=== PATIENT | male | born 1965 | race Caucasian/White ===

== ENCOUNTER 2020-09-11 12:40 | Emergency (ER) | payer BC, SELFPAY ==
[2020-09-11 12:48] VITALS: BP 151/82; PULSE 80; RESP 20; TEMP 37.4; O2SAT 100
--- NOTE | 2020-09-11 13:44 | ED.DENTAL ---
HPI - Dental/Oral General Chief complaint: Dental/Oral Stated complaint: tooth pain Source: patient and RN notes reviewed Limitations: no limitations History of Present Illness HPI Narrative: The patient, a smoker/drinker, presents with facial pain. Patient states he has a couple day worsening, of couple year history, of teeth problems. He last saw his dentist about a year ago, he complains of mild left upper lip facial swelling and dental discomfort. No fever, hoarseness, trismus, drainage/discharge; symptoms are mild worse upon eating. Related Data Allergies Allergy/AdvReac Type Severity Reaction Status Date / Time No Known Allergies Allergy Verified 09/11/20 13:16 Review of Systems Review of Systems: Narrative: The patient has been informed that they may have pre-hypertension or Hypertension based on a BP reading in the department. I recommend that the patient call the primary care provider listed on their discharge instructions or a physician of their choice this week to arrange follow up for further evaluation of possible pre-hypertension or Hypertension General/Constitutional: No weight loss,fever Eyes: N0: Redness,discharge Ears/Nose/Throat: No: Epistaxis,ear discharge Respiratory: Denies: Hemoptysis Gastrointestinal: No Vomiting, Bleeding-rectal Skin: No Lumps, eruption Neurologic: No Focal Weakness,Sz Hematologic: Denies: Petechiae/Purpura Psychiatric: No: Suicida ideationl All Other Systems: Reviewed and Negative [facility] Past Medical History Medical History (Updated 09/11/20 @ 12:57 by Sukhdeep Mirza MD) Erectile dysfunction GERD (gastroesophageal reflux disease) Family History Family History Father Hypertension Family history of cardiovascular disease Family history of emphysema Mother Hypertension Family history of cardiovascular disease Social History Social History Smoking status: Never smoker Alcohol intake: current Comments At time of signature, agree with nursing past medical, surgical, social and family history. There is no relevant family history pertinent to the presenting complaint Exam Narrative: Exam Narrative: General Appearance: Well appearing, Conjunctiva clear Nose: Normal nose Mouth/Throat: Normal appearing (with mild left upper jaw swelling), Normal lips, MM moist, Uvula midline (scattered dental caries and fillings,, with rare fracture) Neck: Supple, No adenopathy Musculoskeletal: Full ROM, Non tender, Normal strength Skin: Warm, Dry, Normal color Neurological: A&O x3, Speech clear, , Normal affect Course Vital Signs Vital signs: Vital Signs Temperature 99.3 F 09/11/20 12:48 Pulse Rate 80 09/11/20 12:48 Respiratory Rate 20 09/11/20 12:48 Blood Pressure 151/82 H 09/11/20 12:48 Pulse Oximetry 100 09/11/20 12:48 Temperature 99.3 F 09/11/20 12:48 Pulse Rate 80 09/11/20 12:48 Respiratory Rate 20 09/11/20 12:48 Blood Pressure 151/82 H 09/11/20 12:48 Pulse Oximetry 100 09/11/20 12:48 Discharge Plan Discharge Clinical Impression: Abscess of jaw, left, Gingivitis Patient Disposition: Home, Self-Care Condition: Stable Instructions: Antibiotic Form, Dental Abscess (ED) Prescriptions: New tramadol 50 mg tablet 50 mg PO Q6H PRN (Reason: pain) Qty: 15 RF: 1 Lidocaine Viscous 2 % solution 5 ml MUCOUS MEM QID PRN (Reason: pain) Qty: 100 RF: 0 amoxicillin-pot clavulanate [Augmentin] 500-125 mg tablet 1 tablet PO Q12H Qty: 20 RF: 0 Follow-up/Referrals: UNKNOWN,DOCTOR [Primary Care Provider] - Stand Alone Forms: Work/School Release IP
== END 2020-09-11 13:03 | disposition home or self-care (01) ==
PROVIDERS: Emergency Provider Emergency Medicine
DX: M27.2 Inflammatory conditions of jaws (principal); K05.10 Chronic gingivitis, plaque induced; K21.9 Gastro-esophageal reflux disease without esophagitis; F17.200 Nicotine dependence, unspecified, uncomplicated
CPT/HCPCS: 99213; G0463

== ENCOUNTER 2021-06-12 17:56 | Emergency (ER) | payer SELFPAY ==
[2021-06-12 18:44] VITALS: BP 144/88; PULSE 126; RESP 20; TEMP 37.2; O2SAT 96
--- NOTE | 2021-06-12 19:51 | ED.URI ---
HPI - URI/Sore Throat General Chief Complaint: Upper Respiratory Infection Stated Complaint: SINUS CONGESTION/EAR PRESSURE/STOMACH PAIN/WEAKNES Time Seen by Provider: 06/12/21 19:39 Source: patient and RN notes reviewed Mode of arrival: ambulatory Limitations: no limitations History of Present Illness HPI Narrative: Patient presents today with a 6-day history of nasal congestion, sinus pressure, fatigue, ear clogging, cough. Denies sore throat, shortness of breath, nausea, vomiting, diarrhea, fever. He has been vaccinated against COVID-19. He has been taking Tylenol, Benadryl, Sudafed with some relief. MD elicited complaint: cough, sore throat, nasal congestion and sinus pain Related Data Allergies Allergy/AdvReac Type Severity Reaction Status Date / Time No Known Allergies Allergy Verified 06/12/21 19:22 Review of Systems Review of Systems: CONSTITUTIONAL: Denies body aches, fever, chills, or sweats.+ Fatigue EYES: Denies visual changes, redness, or discharge. ENT: Denies rhinorrhea, sore throat. + Nasal congestion, sinus pressure, ear clogging CARDIOVASCULAR: Denies chest pain, palpitations, or edema. RESPIRATORY: Denies dyspnea.+ Cough GASTROINTESTINAL: Denies abdominal pain, nausea, vomiting, or diarrhea. GENITOURINARY: Denies dysuria or hematuria. SKIN: Denies rash, itching, or wounds. MUSCULOSKELETAL: Denies back pain, joint pain, or myalgia. NEUROLOGIC: Denies headache, numbness, tingling, or weakness. PSYCH: Denies depression or anxiety. [facility] Past Medical History Medical History Erectile dysfunction GERD (gastroesophageal reflux disease) Family History Family History Father Hypertension Family history of cardiovascular disease Family history of emphysema Mother Hypertension Family history of cardiovascular disease Social History Social History Smoking status: Never smoker Alcohol intake: current Comments At time of signature, I have reviewed and agree with nursing past medical, surgical, social and family history unless otherwise noted. Please see nursing chart for further information. There is no relevant family history pertinent to the presenting complaint Exam Narrative: GENERAL: Well-appearing, well-nourished, and in no acute distress. HEAD: Normocephalic, atraumatic. EYES: EOMI. No redness or drainage. Conjunctivae normal. ENT: Mucous membranes pink and moist. Nares congested. No rhinorrhea. TMs normal bilaterally. Throat normal. Uvula midline. NECK: Normal AROM. Supple. No lymphadenopathy. CHEST: No respiratory distress. Crackles in the left lower lobe, otherwise clear. HEART: Regular rate and rhythm. No murmur appreciated. Normal peripheral pulses. EXTREMITIES: Normal range of motion. No edema. SKIN: Warm, dry, no rash. Capillary refill normal. Normal skin turgor. NEURO: No focal deficits. Alert and oriented x3. Gait steady. PSYCH: Normal affect. No signs of depression or anxiety. Course Course Emergency Course: Patient declines chest x-ray today. Discussed benefits of chest x-ray. States he would like to go home and go to bed as he is very tired. Vital Signs Vital signs: Vital Signs Temperature 99.0 F 06/12/21 18:44 Pulse Rate 126 H 06/12/21 18:44 Respiratory Rate 20 06/12/21 18:44 Blood Pressure 144/88 H 06/12/21 18:44 Pulse Oximetry 96 06/12/21 18:44 Temperature 99.0 F 06/12/21 18:44 Pulse Rate 126 H 06/12/21 18:44 Respiratory Rate 20 06/12/21 18:44 Blood Pressure 144/88 H 06/12/21 18:44 Pulse Oximetry 96 06/12/21 18:44 Reviewed. Pt has been instructed to follow up with his PCP regarding his elevated blood pressure today. Patient MDM - URI/Sore Throat Differential Diagnosis Differential diagnosis: Likely upper respiratory infection, sinusitis, vi
== END 2021-06-12 20:03 | disposition home or self-care (01) ==
PROVIDERS: Emergency Provider Nurse Practitioner
DX: J40 Bronchitis, not specified as acute or chronic (principal); J06.9 Acute upper respiratory infection, unspecified; Z20.822 Contact with and (suspected) exposure to COVID-19
CPT/HCPCS: 87426; 99213; C9803; G0463

== ENCOUNTER → 2021-06-16 02:37 | Outpatient (CLI) | payer OTHER, SELFPAY ==
[2021-06-18 18:39] LABS: SARS-CoV-2 RNA PCR Negative
== END ==
PROVIDERS: Visit Provider Nurse Practitioner Family
DX: Z20.822 Contact with and (suspected) exposure to COVID-19 (principal)
CPT/HCPCS: C9803; U0003; U0005

== ENCOUNTER 2024-01-02 12:56 | Emergency (ER) | payer OTHER, SELFPAY ==
[2024-01-02 13:07] VITALS: BP 148/79; PULSE 105; RESP 20; TEMP 36.4; O2SAT 97
--- NOTE | 2024-01-02 13:45 | ED.DENTAL ---
HPI - Dental/Oral General Chief complaint: Dental/Oral Stated complaint: tooth pain Time Seen by Provider: 01/02/24 13:27 History of Present Illness HPI Narrative: 58-year-old male presenting to the emergency department for evaluation worsening dental pain. Patient has a history poor dentition. Patient states that his front lower right teeth have been bothering him for the last 2 days and acutely worsened last night. Patient has not yet called for follow-up with a dentist. Patient states he will start calling on Friday. Related Data Allergies Allergy/AdvReac Type Severity Reaction Status Date / Time No Known Allergies Allergy Verified 01/02/24 13:31 Review of Systems Review of Systems: All systems reviewed & are unremarkable except as noted in HPI and below PMFSH Past Medical History Medical History Erectile dysfunction GERD (gastroesophageal reflux disease) Family History Family History Father Hypertension Family history of cardiovascular disease Family history of emphysema Mother Hypertension Family history of cardiovascular disease Social History Social History Smoking status: Never smoker Alcohol intake: current Exam Narrative: APPEARANCE: Well appearing, no pain, no distress, well-nourished. HEAD: normocephalic, atraumatic. EYES: PERRLA/EOMI, conjunctivae clear. Mouth: Poor dentition, dental decay with no dental abscess amenable to drainage NOSE: Normal no drainage EARS:TMS clear with good light reflex. THROAT: Pharynx clear, no exudate. NECK: Supple. No adenopathy, no masses. RESPIRATORY: Airway patent, respirations nonlabored. Clear to auscultation bilaterally, no rales, rhonchi, wheezing. CARDIOVASCULAR: Regular rate and rhythm without murmurs rubs or gallops. ABDOMINAL: Soft, nontender, nondistended, normal bowel sounds MUSCULOSKELETAL: Moves all extremities. Strength/ROM intact, No edema, No calf tenderness. NEURO: Alert. Cranial nerves II through XII intact. Good gait. Good coordination SKIN: Warm, dry. Normal Color Course Course Emergency Course: patient was started on antibiotics and discharged to Vital Signs Vital signs: Vital Signs Temperature 97.5 F L 01/02/24 13:07 Pulse Rate 105 H 01/02/24 13:07 Respiratory Rate 20 01/02/24 13:07 Blood Pressure 148/79 H 01/02/24 13:07 Pulse Oximetry 97 01/02/24 13:07 Oxygen Delivery Room Air 01/02/24 13:07 Temperature 97.5 F L 01/02/24 13:07 Pulse Rate 105 H 01/02/24 13:07 Respiratory Rate 20 01/02/24 13:07 Blood Pressure 148/79 H 01/02/24 13:07 Pulse Oximetry 97 01/02/24 13:07 Oxygen Delivery Room Air 01/02/24 13:07 MDM - Dental/Oral MDM Narrative Medical decision making narrative: 58-year-old male presented to the emergency department for evaluation dental pain. No trismus and no abscess amenable to drainage. Patient has no medication allergies. Patient was started on Augmentin in the emergency department and will also be discharged home with Augmentin and [place] for pain control. Patient was strongly encouraged to have close follow-up with a dentist. Discharge Plan Discharge Clinical Impression: Dental caries Patient Disposition: Home, Self-Care Condition: Stable Instructions: Antibiotic Form, Acute Dental Trauma (ED) Additional Instructions: Antibiotic as directed until completed. Have close follow-up with your dentist. If you have any worsening symptoms and please call or return to the emergency department. Prescriptions: New amoxicillin-pot clavulanate 875-125 mg tablet 1 tablet PO Q12H 7 Days Qty: 14 0RF hydrocodone-acetaminophen 5-325 mg tablet 1 tablet PO Q12H PRN (Reason: pain) Qty: 14 0RF No Action prednisone 50 mg tablet 50 mg PO DAILY 5 Days Qty:
[2024-01-02] MEDS: HYDROcodone/acetaminophen (*CRX) 5-325 MG TABLET 1 TAB PO (13:58)
[2024-01-02] MEDS: AMOXICILLIN/CLAVULANATE K 875-125 MG TAB 1 TABLET PO (13:58)
== END 2024-01-02 14:03 | disposition home or self-care (01) ==
PROVIDERS: Emergency Provider Emergency Medicine
DX: K02.9 Dental caries, unspecified (principal); K21.9 Gastro-esophageal reflux disease without esophagitis
CPT/HCPCS: 99283; A9270

== ENCOUNTER 2024-06-27 13:18 | Emergency (ER) | payer OTHER, SELFPAY ==
[2024-06-27 13:22] VITALS: BP 163/85; PULSE 98; RESP 17; TEMP 36.6; O2SAT 98
--- NOTE | 2024-06-27 13:44 | ED.GENADULT ---
HPI - General Adult General Chief complaint: Ear Stated complaint: ear Time Seen by Provider: 06/27/24 13:29 History of Present Illness HPI narrative: This is a 59-year-old male presenting with cerumen impaction. Patient says he has a pressure in his ear. He has a lot of issues with ear wax. He has seen his primary care physician who prescribed Debrox but he would not take it because he was concerned about putting something in his ears. No loss of hearing. No fever chills nausea vomiting diarrhea. No sore throat. Patient says he had a couple of beers before he came in to get checked out. Related Data Allergies Allergy/AdvReac Type Severity Reaction Status Date / Time No Known Allergies Allergy Verified 06/27/24 13:32 [facility] Past Medical History Medical History Erectile dysfunction GERD (gastroesophageal reflux disease) Family History Family History Father Hypertension Family history of cardiovascular disease Family history of emphysema Mother Hypertension Family history of cardiovascular disease Social History Social History Smoking status: Never smoker Alcohol intake: current Exam Narrative: APPEARANCE: No apparent distress. Head: Left external ear canal has cerumen impaction. Unable to visualize the tympanic membrane. EYES: EOMI, NOSE: Atraumatic NECK: Trachea midline RESPIRATORY: No increased rate of breathing CARDIOVASCULAR: RRR, ABDOMINAL: Non-distended MUSCULOSKELETAl: No obvious deformities NEURO: Alert. Moving 4/4 extremities SKIN:: Warm, dry. Normal color PSYCHIATRIC: Normal affect Course Vital Signs Vital signs: Vital Signs Temperature 97.8 F 06/27/24 13:22 Pulse Rate 98 06/27/24 13:22 Respiratory Rate 17 06/27/24 13:22 Blood Pressure 163/85 H 06/27/24 13:22 Pulse Oximetry 98 06/27/24 13:22 Temperature 97.8 F 06/27/24 13:22 Pulse Rate 98 06/27/24 13:22 Respiratory Rate 17 06/27/24 13:22 Blood Pressure 163/85 H 06/27/24 13:22 Pulse Oximetry 98 06/27/24 13:22 Medical Decision Making MDM Narrative Medical decision making narrative: -Course: 59-year-old male presenting with left ear pressure. He has cerumen impaction on exam. It was partially disimpacted using a curette. Says his hearing is improving feels much better. Will be discharged with ENT follow-up. -Procedures: Left-sided cerumen impaction removal using a curette. After cerumen was removed was able visualize tympanic membrane which was intact. -Shared decision making / Disposition: Discharge Vital Signs Vital Signs: Vital Signs Temperature 97.8 F 06/27/24 13:22 Pulse Rate 98 06/27/24 13:22 Respiratory Rate 17 06/27/24 13:22 Blood Pressure 163/85 H 06/27/24 13:22 Pulse Oximetry 98 06/27/24 13:22 Temperature 97.8 F 06/27/24 13:22 Pulse Rate 98 06/27/24 13:22 Respiratory Rate 17 06/27/24 13:22 Blood Pressure 163/85 H 06/27/24 13:22 Pulse Oximetry 98 06/27/24 13:22 Discharge Plan Discharge Clinical Impression: Cerumen impaction Patient Disposition: Home, Self-Care Condition: Stable Instructions: Antibiotic Form, Earache (ED) Additional Instructions: Please follow-up with ENT as needed for ear wax. Prescriptions: No Action prednisone 50 mg tablet 50 mg PO DAILY 5 Days Qty: 5 0RF amoxicillin-pot clavulanate 875-125 mg tablet 1 tablet PO Q12H 7 Days Qty: 14 0RF hydrocodone-acetaminophen 5-325 mg tablet 1 tablet PO Q12H PRN (Reason: pain) Qty: 14 0RF Follow-up/Referrals: Gerardo Mendoza MD [Physician] - 1 Week (Cerumen impaction) UNKNOWN,DOCTOR [Primary Care Provider] -
== END 2024-06-27 14:14 | disposition home or self-care (01) ==
PROVIDERS: Emergency Provider Emergency Medicine
DX: H61.22 Impacted cerumen, left ear (principal); K21.9 Gastro-esophageal reflux disease without esophagitis
CPT/HCPCS: 69210; 99282

== ENCOUNTER 2024-10-20 15:41 | Emergency (ER) | payer OTHER, SELFPAY ==
--- NOTE | ~2024-10-20 | CT_ITS ---
EXAMINATION: CT diagnostic chest w con DATE: 10/20/2024 16:51 INDICATION: Right chest wall soft tissue mass TECHNIQUE: Computed tomography (CT) of the chest was performed with 75 cc Omnipaque 350 intravenous c ontrast. The dose-length product was 253.76 mGy-cm. Automated exposure control and iterative reconstruction technique were employed. COMPARISON: None FINDINGS: There is mild right axillary lymphadenopathy. There is heterogeneous mass involving the med ial aspect of the right pectoralis muscle which is ill-defined. There is suggestion of chest wall inv asion. No underlying osseous abnormalities are seen. Moderate thoracic spondylosis.No endobronchial l esions. No pneumothorax. There is dependent atelectasis. No suspicious pulmonary nodules or masses. IMPRESSION: 1. Heterogeneous appearance medial aspect of the right pectoralis muscle with areas of low attenuatio n and possible chest wall involvement. Differential diagnosis includes infection and neoplasm. 2: Right axillary lymphadenopathy. Reviewed, dictated and finalized at location A. [facility] IMPRESSION: 1. Heterogeneous appearance medial aspect of the right pectoralis muscle with a reas of low attenuation and possible chest wall involvement. Differential diagn osis includes infection and neoplasm. 2: Right axillary lymphadenopathy.
[2024-10-20 15:48] VITALS: BP 180/100; PULSE 118; RESP 17; TEMP 36.9; O2SAT 98
--- NOTE | 2024-10-20 16:01 | ED.GENADULT ---
HPI - General Adult General Chief complaint: Unspecified <Kathryn Ross PA-C - Last Filed: 10/20/24 16:03> Stated complaint: lump on collar bone <Kathryn Ross PA-C - Last Filed: 10/20/24 16:03> Time Seen by Provider: 10/20/24 16:53 <Kathryn Ross PA-C - Last Filed: 10/20/24 16:03> Focused HPI: 59-year-old male presents to the emergency department for lump to the right side of his chest for 1 week. Patient states a couple weeks ago began developing tenderness to this region 1 week ago noticed a lump that has grown in size. Patient states the area is tender to touch and itchy. No fevers, no injury or trauma. No history of cancer. He does not smoke. GENERAL: Well-appearing, well-nourished, and in no acute distress. HEAD: Normocephalic, atraumatic. CHEST: Clear to auscultation. ?No respiratory distress. SKIN: Approximately 3 cm firm raised mass to the right anterior chest wall just inferior to the clavicle, mildly tender to palpation, no overlying erythema or significant fluctuance, no induration HEART: Regular rate and rhythm.? NEURO: ?Alert and oriented x3. Patient screened in triage and initial orders placed.? ?Additional care and disposition to be based upon?diagnostic testing and treatment. <Kathryn Ross PA-C - Last Filed: 10/20/24 16:03> History of Present Illness HPI narrative: Agree with HPI. <Thanh Deutsch MD - Last Filed: 10/20/24 17:58> Related Data Allergies/adverse reactions: Allergies Allergy/AdvReac Type Severity Reaction Status Date / Time No Known Allergies Allergy Verified 06/27/24 13:32 <Kathryn Ross PA-C - Last Filed: 10/20/24 16:03> Review of Systems Constitutional: Constitutional: Reports no additional constitutional complaints <Thanh Deutsch MD - Last Filed: 10/20/24 17:58> Cardiovascular: Cardiovascular: Reports no additional cardiovascular complaints <Thanh Deutsch MD - Last Filed: 10/20/24 17:58> Comments: Growing chest wall mass <Thanh Deutsch MD - Last Filed: 10/20/24 17:58> Respiratory: Respiratory: Reports no additional respiratory complaints <Thanh Deutsch MD - Last Filed: 10/20/24 17:58> Musculoskeletal: Musculoskeletal: Reports no additional musculoskeletal complaints <Thanh Deutsch MD - Last Filed: 10/20/24 17:58> PMFSH Past Medical History Medical History: Medical History Erectile dysfunction GERD (gastroesophageal reflux disease) <Kathryn Ross PA-C - Last Filed: 10/20/24 16:03> Family History Family History: Family History Father Hypertension Family history of cardiovascular disease Family history of emphysema Mother Hypertension Family history of cardiovascular disease <Kathryn Ross PA-C - Last Filed: 10/20/24 16:03> Social History Social History: Social History Smoking status: Never smoker Alcohol intake: current <Kathryn Ross PA-C - Last Filed: 10/20/24 16:03> Exam Narrative: GENERAL: Well-appearing, well-nourished, and in no acute distress. HEAD: Normocephalic, atraumatic. ENT: Mucous membranes moist. CHEST: Clear to auscultation. No respiratory distress. Prominent mass inferior to the head of the right clavicle, no overlying erythema, soft over medial aspect. No palpable axillary LAD. HEART: Tachycardic and regular. Normal peripheral pulses. EXTREMITIES: Normal range of motion. No edema. SKIN: Warm, dry, no rash. NEURO: Alert and oriented x3. PSYCH: Normal mood and affect. <Thanh Deutsch MD - Last Filed: 10/20/24 17:58> Course Course Emergency Course: Patient resting comfortably. Informed of results. He does have some tachycardia but reports he is very anxious about what is going on. I have spoken with General surgery, Dr. Jeffery, you like the patient follow-up in his clinic. Patient will need a biopsy and likely MRI to further evaluate what is going on. His this does not have the appearance of infection. <Thanh Deutsch MD - Last Filed: 10/20/24 17:58> Vital Signs Vital signs: Vital Signs Temperature 98.4 F 10/20/24 15:48 Pulse Rate 118 H 10/20/24 15:48 Respiratory Rate 17 10/20/24 15:48 Blood Pressure 180/100 H 10/20/24 15:48 Pulse Oximetry 98 10/20/24 15:48 Oxygen Delivery Room Air 10/20/24 15:48 Temperature 98.4 F 10/20/24 15:48 Pulse Rate 118 H 10/20/24 15:48 Respiratory Rate 17 10/20/24 15:48 Blood Pressure 180/100 H 10/20/24 15:48 Pulse Oximetry 98 10/20/24 15:48 Oxygen Delivery Room Air 10/20/24 15:48 <Kathryn Ross PA-C - Last Filed: 10/20/24 16:03> Vital Signs Temperature 98.4 F 10/20/24 15:48 Pulse Rate 118 H 10/20/24 15:48 Respiratory Rate 17 10/20/24 15:48 Blood Pressure 180/100 H 10/20/24 15:48 Pulse Oximetry 98 10/20/24 15:48 Oxygen Delivery Room Air 10/20/24 15:48 Temperature 98.4 F 10/20/24 15:48 Pulse Rate 118 H 10/20/24 15:48 Respiratory Rate 17 10/20/24 15:48 Blood Pressure 180/100 H 10/20/24 15:48 Pulse Oximetry 98 10/20/24 15:48 Oxygen Delivery Room Air 10/20/24 15:48 <Thanh Deutsch MD - Last Filed: 10/20/24 17:58> Medical Decision Making Vital Signs Vital Signs: Vital Signs Temperature 98.4 F 10/20/24 15:48 Pulse Rate 118 H 10/20/24 15:48 Respiratory Rate 17 10/20/24 15:48 Blood Pressure 180/100 H 10/20/24 15:48 Pulse Oximetry 98 10/20/24 15:48 Oxygen Delivery Room Air 10/20/24 15:48 Temperature 98.4 F 10/20/24 15:48 Pulse Rate 118 H 10/20/24 15:48 Respiratory Rate 17 10/20/24 15:48 Blood Pressure 180/100 H 10/20/24 15:48 Pulse Oximetry 98 10/20/24 15:48 Oxygen Delivery Room Air 10/20/24 15:48 <Kathryn Ross PA-C - Last Filed: 10/20/24 16:03> Vital Signs Temperature 98.4 F 10/20/24 15:48 Pulse Rate 118 H 10/20/24 15:48 Respiratory Rate 17 10/20/24 15:48 Blood Pressure 180/100 H 10/20/24 15:48 Pulse Oximetry 98 10/20/24 15:48 Oxygen Delivery Room Air 10/20/24 15:48 Temperature 98.4 F 10/20/24 15:48 Pulse Rate 118 H 10/20/24 15:48 Respiratory Rate 17 10/20/24 15:48 Blood Pressure 180/100 H 10/20/24 15:48 Pulse Oximetry 98 10/20/24 15:48 Oxygen Delivery Room Air 10/20/24 15:48 <Thanh Deutsch MD - Last Filed: 10/20/24 17:58> Lab Data Result diagrams: 10/20/24 16:29 10/20/24 16:29 <Kathryn Ross PA-C - Last Filed: 10/20/24 16:03> Labs: Lab Results 10/20/24 Range/Units 16:29 WBC 7.5 (4.5-10.0) K/mm3 RBC 5.17 (4.6-6.20) M/mm3 Hgb 15.8 (14.0-18.0) g/dL Hct 46.5 (42.0-52.0) % MCV 89.9 (80-100) fl MCH 30.6 (26-34) pg MCHC 34.0 (32-36) g/dl RDW 12.3 (11.5-14.5) % Plt Count 293 (150-375) k/mm3 MPV 8.4 (7.4-10.4) fl Immature Gran % (Auto) 0.4 (0-0.5) % Neut % (Auto) 66.7 (45.5-73.1) % Lymph % (Auto) 19.9 (18.3-44.2) % [place] % (Auto) 9.5 H (2.6-8.5) % Eos % (Auto) 3.2 (0-4.4) % Baso % (Auto) 0.3 (0.2-1.2) % Lymph # (Auto) 1.50 (0.9-3.2) K/mm3 [place] # (Auto) 0.7 H (0.1-0.6) K/mm3 Eos # (Auto) 0.2 (0-0.3) K/mm3 Baso # (Auto) 0.0 (0.0-0.1) K/mm3 Abs Immat Gran (auto) 0.03 (0.00-0.031) K/mm3 Absolute Neuts (auto) 5.0 (1.3-6.7) K/mm3 Absolute Nucleated RBC 0.000 (0.0-0.012) K/mm3 Nucleated RBC % 0.0 (0.0-0.2) % Sodium 136 L (137-145) mmol/L Potassium 3.9 (3.4-5.0) mmol/L Chloride 97 L (98-107) mmol/L Carbon Dioxide 30 (22-30) mmol/L Anion Gap 9 (4-12) mmol/L BUN 15 (9-20) mg/dL Creatinine 0.85 (0.7-1.3) mg/dL Estim Creat Clear Calc 87 ml/min Estimated GFR > 60 (59 - ) Glucose 122 H (65-110) mg/dL Calcium 9.6 (8.4-10.2) mg/dL <Kathryn Ross PA-C - Last Filed: 10/20/24 16:03> Lab Results 10/20/24 Range/Units 16:29 WBC 7.5 (4.5-10.0) K/mm3 RBC 5.17 (4.6-6.20) M/mm3 Hgb 15.8 (14.0-18.0) g/dL Hct 46.5 (42.0-52.0) % MCV 89.9 (80-100) fl MCH 30.6 (26-34) pg MCHC 34.0 (32-36) g/dl RDW 12.3 (11.5-14.5) % Plt Count 293 (150-375) k/mm3 MPV 8.4 (7.4-10.4) fl Immature Gran % (Auto) 0.4 (0-0.5) % Neut % (Auto) 66.7 (45.5-73.1) % Lymph % (Auto) 19.9 (18.3-44.2) % [place] % (Auto) 9.5 H (2.6-8.5) % Eos % (Auto) 3.2 (0-4.4) % Baso % (Auto) 0.3 (0.2-1.2) % Lymph # (Auto) 1.50 (0.9-3.2) K/mm3 [place] # (Auto) 0.7 H (0.1-0.6) K/mm3 Eos # (Auto) 0.2 (0-0.3) K/mm3 Baso # (Auto) 0.0 (0.0-0.1) K/mm3 Abs Immat Gran (auto) 0.03 (0.00-0.031) K/mm3 Absolute Neuts (auto) 5.0 (1.3-6.7) K/mm3 Absolute Nucleated RBC 0.000 (0.0-0.012) K/mm3 Nucleated RBC % 0.0 (0.0-0.2) % Sodium 136 L (137-145) mmol/L Potassium 3.9 (3.4-5.0) mmol/L Chloride 97 L (98-107) mmol/L Carbon Dioxide 30 (22-30) mmol/L Anion Gap 9 (4-12) mmol/L BUN 15 (9-20) mg/dL Creatinine 0.85 (0.7-1.3) mg/dL Estim Creat Clear Calc 87 ml/min Estimated GFR > 60 (59 - ) Glucose 122 H (65-110) mg/dL Calcium 9.6 (8.4-10.2) mg/dL <Thanh Deutsch MD - Last Filed: 10/20/24 17:58> Imaging Data Radiologist's impression: ITS Impressions Chest CT 10/20/24 16:55 IMPRESSION: 1. Heterogeneous appearance medial aspect of the right pectoralis muscle with areas of low attenuation and possible chest wall involvement. Differential diagnosis includes infection and neoplasm. 2: Right axillary lymphadenopathy. <Thanh Deutsch MD - Last Filed: 10/20/24 17:58> Discharge Plan Discharge Clinical Impression: Chest wall mass <Kathryn Ross PA-C - Last Filed: 10/20/24 16:03> Patient Disposition: Home, Self-Care <Kathryn Ross PA-C - Last Filed: 10/20/24 16:03> Condition: Stable <ROBYN Ryees Last Filed: 10/20/24 16:03> Additional Instructions: You have a mass of the chest wall. It is below the skin. It will need a biopsy and further evaluation. You may require MRI. Follow-up with general surgery. You should also establish care with a primary care physician. Return to the ER if he cannot breathe, he lose consciousness, you have additional concerns. <Kathryn Ross PA-C - Last Filed: 10/20/24 16:03> Patient Language: Mongolian <Kathryn Ross PA-C - Last Filed: 10/20/24 16:03> Prescriptions: No Action prednisone 50 mg tablet 50 mg PO DAILY 5 Days Qty: 5 0RF amoxicillin-pot clavulanate 875-125 mg tablet 1 tablet PO Q12H 7 Days Qty: 14 0RF hydrocodone-acetaminophen 5-325 mg tablet 1 tablet PO Q12H PRN (Reason: pain) Qty: 14 0RF <Kathryn Ross PA-C - Last Filed: 10/20/24 16:03> Follow-up/Referrals: Koby Graf MD [Physician] - 1 Week (general primary care) UNKNOWN,DOCTOR [Primary Care Provider] - Stephen Jeffery MD [Physician] - 1 Week (Chest wall mass) <ROBYN Reyes Last Filed: 10/20/24 16:03>
[2024-10-20 16:39] LABS: Basophils Percent Auto 0.3 % (0.2-1.2); Eosinophils Absolute Auto 0.2 K/mm3 (0-0.3); Eosinophils Percent Auto 3.2 % (0-4.4); Hematocrit 46.5 % (42.0-52.0); Hemoglobin 15.8 g/dL (14.0-18.0); Immature Granulocyte Absolute 0.03 K/mm3 (0.00-0.031); Immature Granulocyte Percent A 0.4 % (0-0.5); Lymphocytes Percent Auto 19.9 % (18.3-44.2); Mean Corpuscular Hemoglobin 30.6 pg (26-34); Mean Corpuscular Volume 89.9 fl (80-100); Mean Platelet Volume 8.4 fl (7.4-10.4); Monocytes Absolute Auto 0.7 K/mm3 (0.1-0.6); Monocytes Percent Auto 9.5 % (2.6-8.5); Neutrophils Percent Auto 66.7 % (45.5-73.1); Platelet Count Result 293 k/mm3 (150-375); Red Blood Count 5.17 M/mm3 (4.6-6.20); Red Cell Distribution Width 12.3 % (11.5-14.5); White Blood Count 7.5 K/mm3 (4.5-10.0)
[2024-10-20 16:49] LABS: Anion Gap 9 mmol/L (4-12); Blood Urea Nitrogen 15 mg/dL (9-20); Calcium 9.6 mg/dL (8.4-10.2); Carbon Dioxide 30 mmol/L (22-30); Chloride 97 mmol/L (98-107); Estimated CRCL calculation 87 ml/min; Estimated Glomerular Filt Rate > 60; Glucose 122 mg/dL (65-110); Potassium 3.9 mmol/L (3.4-5.0); Sodium 136 mmol/L (137-145)
== END 2024-10-20 18:11 | disposition home or self-care (01) ==
PROVIDERS: Physician Assistant; Emergency Provider Emergency Medicine
DX: R22.2 Localized swelling, mass and lump, trunk (principal); K21.9 Gastro-esophageal reflux disease without esophagitis
CPT/HCPCS: 36415; 71260; 80048; 85025; 99284; Q9967

== ENCOUNTER 2024-11-10 06:50 | Outpatient (CLI) | payer OTHER, SELFPAY ==
--- NOTE | ~2024-11-10 | MR_ITS ---
EXAMINATION: MR chest wo/w con DATE: 11/10/2024 08:53 INDICATION: Localized swelling, mass or lump at the trunk with abnormal anterior right chest wall sof t tissue mass TECHNIQUE: Magnetic resonance imaging (MRI) of the anterior upper chest was performed without and wit h 18 mL Multihance intravenous contrast. A marker was placed over the mass. Sequences included axial T1-weighted FSE, axial T2-weighted FS FSE, coronal T1-weighted FSE, coronal T2-weighted FS FSE, sagi ttal T1-weighted FSE and sagittal T2-weighted FS FSE. Precontrast axial T1-weighted FS FSE and post c ontrast axial, sagittal and coronal T1-weighted FS FSE were also obtained. COMPARISON: CT dated 10/20/2024 FINDINGS: There is asymmetric mild enhancing synovitis at the right sternoclavicular joint extending about the medial head of the clavicle. Superficial and slightly inferior to the joint space there is a 3.8 x 3. 4 x 1.2 cm fluid collection with irregular peripheral enhancing wall and a few enhancing internal sep tations. There is additional non masslike enhancement extending peripherally from the lesion along th e superficial muscular fascia. Although differential includes malignancy the appearance and location would strongly favor an abscess related to aseptic arthritis. Diffuse mild marrow edema at the medial head of the right clavicle with small region of minimal enhancement along the anterosuperior margin of the head of the right clavicle were there is a small chronic erosion with corticated margins on th e prior CT. Although could not exclude early osteomyelitis there is no geographic loss of marrow fat signal with chronic corticated erosion/osteolysis on prior CT to more specifically suggest this. Ther e is however a focal region of marrow edema and enhancement with prominent loss of T1 fat signal at t he left superior margin of the manubrium near its articulation with the left clavicle and first rib. There is however no correlate on the recent prior CT. The left sternomanubrial articulation appears unremarkable with no joint effusion or synovitis. No other abnormal fluid collections or masses ident ified. IMPRESSION: 1. 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 Consider diagnostic aspiration of the suspected abscess which could be performed with ultrasound guidance. 2. Small region of fluid signal and enhancement with loss of the normal T1 marrow fat signal at the l eft side of the manubrium without evident correlate on the prior CT. This suggests the lesion may be rapidly evolving and along with the proximity to the suspected abscess would favor osteomyelitis over malignancy/metastatic disease. Reviewed, dictated and finalized at location A. L ARTIST IMPRESSION: 1. 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 Consider diagnostic aspiration of the suspected abscess which could be per formed with ultrasound guidance. 2. Small region of fluid signal and enhancement with loss of the normal T1 george ow fat signal at the left side of the manubrium without evident correlate on th e prior CT. This suggests the lesion may be rapidly evolving and along with the proximity to the suspected abscess would favor osteomyelitis over malignancy/m etastatic disease.
== END 2024-11-10 06:51 | disposition home or self-care (01) ==
PROVIDERS: PCP Surgery; Visit Provider Surgery
DX: R22.2 Localized swelling, mass and lump, trunk (principal)
CPT/HCPCS: 71552; A9577

== ENCOUNTER 2024-12-06 13:42 | Emergency (ER) | payer OTHER, SELFPAY ==
[2024-12-06 13:57] VITALS: BP 165/90; PULSE 98; RESP 17; TEMP 36.7; O2SAT 100
--- NOTE | 2024-12-06 16:30 | ED.DENTAL ---
HPI - Dental/Oral General Chief complaint: Dental/Oral <Peggyrodri Cates APRN - Last Filed: 12/06/24 16:33> Stated complaint: dental pain <Peggy Cates APRN - Last Filed: 12/06/24 16:33> Time Seen by Provider: 12/06/24 16:05 <Peggyrodri Cates APRN - Last Filed: 12/06/24 16:33> Focused HPI: Patient is a 59-year-old male who presents to the ER with complaints of dental pain. He reports pain started approximately 2 days ago. Patient endorses pain in his left lower jaw in his most distal tooth. He reports heat makes his symptoms worse. Patient denies any swelling to his gum. He reports he does not have a dentist at this time. GENERAL: Well-appearing, well-nourished, and in no acute distress. HEAD: Normocephalic, atraumatic. + decay and redness in his R lower gum CHEST: Clear to auscultation. ?No respiratory distress. HEART: Regular rate and rhythm.? NEURO: ?Alert and oriented x3. Patient screened in triage and initial orders placed.? ?Additional care and disposition to be based upon?diagnostic testing and treatment. <Peggy Cates APRN - Last Filed: 12/06/24 16:33> History of Present Illness HPI Narrative: Agree with HPI <Thanh Deustch MD - Last Filed: 12/06/24 17:42> Related Data Allergies/adverse reactions: Allergies Allergy/AdvReac Type Severity Reaction Status Date / Time No Known Allergies Allergy Verified 11/10/24 14:33 <Peggy Cates APRN - Last Filed: 12/06/24 16:33> Review of Systems Constitutional: Constitutional: Reports no additional constitutional complaints <Thanh Deutsch MD - Last Filed: 12/06/24 17:42> ENT: Reports system reviewed and no additional complaints, except as documented <Thanh Deutsch MD - Last Filed: 12/06/24 17:42> Cardiovascular: Cardiovascular: Reports no additional cardiovascular complaints <Thanh Deutsch MD - Last Filed: 12/06/24 17:42> Respiratory: Respiratory: Reports no additional respiratory complaints <Thanh Deutsch MD - Last Filed: 12/06/24 17:42> [facility] Past Medical History Medical History: Medical History Erectile dysfunction GERD (gastroesophageal reflux disease) <Peggy Cates APRN - Last Filed: 12/06/24 16:33> Family History Family History: Family History Father Hypertension Family history of cardiovascular disease Family history of emphysema Mother Hypertension Family history of cardiovascular disease <Peggy Cates APRN - Last Filed: 12/06/24 16:33> Social History Social History: Social History Smoking status: Never smoker Alcohol intake: current Do You Feel Safe in your Home?: Yes Lack of Transportation: No Lack of Food: Never True Current Housing: I Have Housing Concerned About Future Housing: No Difficulty Paying Gas/Electric Bills: No Difficulty Paying for Meds: No Currently Unemployed: No Education: Decline to Answer Difficulty w/ Childcare or Family Care: No <Peggy Cates APRN - Last Filed: 12/06/24 16:33> Exam Narrative: GENERAL: Well-appearing, well-nourished, and in no acute distress. HEAD: Normocephalic, atraumatic. ENT: Mucous membranes moist. Poor dentition. Erosion of gum with exposure root of tooth number 21 no fluctuant abscess. NECK: Supple. SKIN: Warm, dry, no rash. NEURO: Alert and oriented x3. PSYCH: Normal mood and affect. <Thanh Deutsch MD - Last Filed: 12/06/24 17:42> Course Course Emergency Course: Discharge with oral antibiotic. Recommend dental wax to prevent irritation of the nerve root. <Thanh Deutsch MD - Last Filed: 12/06/24 17:42> Vital Signs Vital signs: Vital Signs Temperature 98.1 F 12/06/24 13:57 Pulse Rate 98 12/06/24 13:57 Respiratory Rate 17 12/06/24 13:57 Blood Pressure 165/90 H 12/06/24 13:57 Pulse Oximetry 100 12/06/24 13:57 Temperature 98.1 F 12/06/24 13:57 Pulse Rate 91 12/06/24 17:06 Respiratory Rate 18 12/06/24 17:06 Blood Pressure 147/96 H 12/06/24 17:06 Pulse Oximetry 99 12/06/24 17:06 Oxygen Delivery Room Air 12/06/24 17:06 <Peggy Cates APRN - Last Filed: 12/06/24 16:33> Vital Signs Temperature 98.1 F 12/06/24 13:57 Pulse Rate 98 12/06/24 13:57 Respiratory Rate 17 12/06/24 13:57 Blood Pressure 165/90 H 12/06/24 13:57 Pulse Oximetry 100 12/06/24 13:57 Temperature 98.1 F 12/06/24 13:57 Pulse Rate 91 12/06/24 17:06 Respiratory Rate 18 12/06/24 17:06 Blood Pressure 147/96 H 12/06/24 17:06 Pulse Oximetry 99 12/06/24 17:06 Oxygen Delivery Room Air 12/06/24 17:06 <Thanh Deutsch MD - Last Filed: 12/06/24 17:42> Discharge Plan Discharge Clinical Impression: Toothache <Peggy Cates APRN - Last Filed: 12/06/24 16:33> Patient Disposition: Home, Self-Care <Peggy Cates APRN - Last Filed: 12/06/24 16:33> Condition: Stable <Peggy Cates APRN - Last Filed: 12/06/24 16:33> Instructions: Toothache (ED) <Peggy Cates APRN - Last Filed: 12/06/24 16:33> Additional Instructions: Taking antibiotic prevent infection. Contact the dental referral line to have your tooth addressed. Purchase dental wax to cover the exposed nerve root. <Peggy Cates APRN - Last Filed: 12/06/24 16:33> Patient Language: Dutch <Peggy Cates APRN - Last Filed: 12/06/24 16:33> Prescriptions: New amoxicillin-pot clavulanate 875-125 mg tablet 1 tablet PO Q12H Qty: 14 0RF <Peggy Cates APRN - Last Filed: 12/06/24 16:33> Follow-up/Referrals: Dental Referral Line [Outside] - 1 Week PHYSICIAN NOT ON STAFF,NONSTAFF [Primary Care Provider] - 1 Week <Peggy Cates APRN - Last Filed: 12/06/24 16:33>
[2024-12-06 17:06] VITALS: BP 147/96; PULSE 91; RESP 18; O2SAT 99
--- NOTE | 2024-12-06 17:36 | ED.DENTAL ---
HPI - Dental/Oral General Chief complaint: Dental/Oral Stated complaint: dental pain Time Seen by Provider: 12/06/24 16:05 History of Present Illness HPI Narrative: Patient is a 59-year-old male who presents ER with dental pain. Located tooth 21. He has eroding gum exposure of nerve. Pain is worse Related Data Allergies Allergy/AdvReac Type Severity Reaction Status Date / Time No Known Allergies Allergy Verified 11/10/24 14:33 PMFSH Past Medical History Medical History Erectile dysfunction GERD (gastroesophageal reflux disease) Family History Family History Father Hypertension Family history of cardiovascular disease Family history of emphysema Mother Hypertension Family history of cardiovascular disease Social History Social History Smoking status: Never smoker Alcohol intake: current Do You Feel Safe in your Home?: Yes Lack of Transportation: No Lack of Food: Never True Current Housing: I Have Housing Concerned About Future Housing: No Difficulty Paying Gas/Electric Bills: No Difficulty Paying for Meds: No Currently Unemployed: No Education: Decline to Answer Difficulty w/ Childcare or Family Care: No Course Vital Signs Vital signs: Vital Signs Temperature 98.1 F 12/06/24 13:57 Pulse Rate 98 12/06/24 13:57 Respiratory Rate 17 12/06/24 13:57 Blood Pressure 165/90 H 12/06/24 13:57 Pulse Oximetry 100 12/06/24 13:57 Temperature 98.1 F 12/06/24 13:57 Pulse Rate 91 12/06/24 17:06 Respiratory Rate 18 12/06/24 17:06 Blood Pressure 147/96 H 12/06/24 17:06 Pulse Oximetry 99 12/06/24 17:06 Oxygen Delivery Room Air 12/06/24 17:06 Discharge Plan Discharge Patient Language: Cypriot Follow-up/Referrals: PHYSICIAN NOT ON STAFF,NONSTAFF [Primary Care Provider] - Stand Alone Forms: Work/School Release IP
== END 2024-12-06 17:57 | disposition home or self-care (01) ==
PROVIDERS: Emergency Provider Emergency Medicine
DX: K08.89 Other specified disorders of teeth and supporting structures (principal); K21.9 Gastro-esophageal reflux disease without esophagitis
CPT/HCPCS: 99283